=== PATIENT | female | born 1985 | race Caucasian/White ===

== ENCOUNTER 2021-01-07 11:02 | Day surgery (SDC) | payer BC ==
[2021-01-07] MEDS ORDERED: Sodium Chloride 0.9(Preservative Free) 10 ML IJ ONE (11:03)
[2021-01-07] MEDS ORDERED: Depo-Medrol 40 MG/ML IM ONE (11:03)
[2021-01-07] MEDS ORDERED: DIPRIVAN 200 MG/20 ML IV ONE ×2 (13:05→13:10)
--- NOTE | 2021-01-07 14:18 | XRAY ---
Indication: Left L4-S1 transforaminal ERIC. Intraoperative fluoroscopy provided for 23 seconds. 4 digital spot images submitted for interpretation demonstrate posterior needle tips projecting over the expected left L4 and L5 nerve roots. Small amount of contrast injected for needle tip placement. Correlate with intraoperative findings/report.
--- NOTE | 2021-01-07 14:18 | XRAY ---
23 seconds of fluoroscopy was used in surgery for a left L4-L5, L5-S1 transforaminal ERIC.
[2021-01-07] MEDS ORDERED: Lactated Ringers 1,000 ML IV ONE (15:41)
== END 2021-01-07 13:31 | disposition home or self-care (01) ==
LOC: SDC-PAIN 11:02
PROVIDERS: ATTEND Psychiatry & Neurology Pain Medicine
DX: M54.16 Radiculopathy, lumbar region (principal); D64.9 Anemia, unspecified; F41.9 Anxiety disorder, unspecified; F32.9 Major depressive disorder, single episode, unspecified; M41.9 Scoliosis, unspecified; Z79.899 Other long term (current) drug therapy
CPT/HCPCS: 64483; 64484; 72100; 77003; 84703; J1030; J2704; Q9966

== ENCOUNTER 2022-04-02 08:07 | Emergency (ER) | payer BC ==
[2022-04-02] MEDS ORDERED: Sodium Chloride 0.9% 1000 ML 1,000 ML IV STA (08:15)
[2022-04-02] MEDS ORDERED: MORPHINE SULFATE 4 MG INJ IV ONE (08:15)
[2022-04-02] MEDS ORDERED: Zofran 4 MG/2 ML VIAL IV ONE (08:15)
--- NOTE | 2022-04-02 08:19 | ERPHSYRPT ---
- History of Present Illness Time Seen by Provider: 04/02/22 08:15 Historian: patient Exam Limitations: no limitations Physician History: 37 years old female with history of MS presented in the ER with chief complaint of right lower quadrant pain since yesterday. Patient described this as a sharp throbbing moderate to severe intensity pain, more with activity, bending over and partial relief with being still and lying down. Denies associated nausea or vomiting. Denies any urinary symptoms. No fever or chills reported. Timing/Duration: yesterday, gradual onset, worse Activities at Onset: activity, rest Quality: sharpness, throbbing Abdominal Pain Onset Location: RLQ Pain Radiation: no radiation Severity of Pain-Max: moderate Severity of Pain-Current: moderate Modifying Factors: Improves With: lying down. Worsens With: movement, palpation Associated Symptoms: denies symptoms Previous symptoms: no prior history Allergies/Adverse Reactions: No Known Drug Allergies Allergy (Unverified 04/02/22 08:20) Home Medications: Glatiramer Acetate 40 mg SQ WEEKLY 04/02/22 [History] - Review of Systems Constitutional: No Symptoms Eyes: No Symptoms Ears, Nose, & Throat: No Symptoms Respiratory: No Symptoms Cardiac: No Symptoms Abdominal/Gastrointestinal: Abdominal Pain Genitourinary Symptoms: No Symptoms Musculoskeletal: No Symptoms Skin: No Symptoms Neurological: No Symptoms Psychological: No Symptoms Endocrine: No Symptoms Hematologic/Lymphatic: No Symptoms Immunological/Allergic: No Symptoms - Nursing Vital Signs Nursing Vital Signs: Initial Vital Signs Temperature 98.7 F 04/02/22 08:23 Pulse Rate 91 H 04/02/22 08:23 Respiratory Rate 20 04/02/22 08:23 Blood Pressure 151/103 04/02/22 08:23 O2 Sat by Pulse Oximetry 99 04/02/22 08:23 Pain Scale Pain Intensity 4 - Physical Exam General Appearance: no apparent distress, alert Eye Exam: PERRL/EOMI Ears, Nose, Throat Exam: normal ENT inspection Neck Exam: normal inspection, supple, carotid bruit Respiratory Exam: normal breath sounds, lungs clear Cardiovascular Exam: regular rate/rhythm, normal heart sounds Gastrointestinal/Abdomen Exam: soft, normal bowel sounds, tenderness, guarding (Right lower quadrant), rebound, other (Positive psoas sign. Negative obturator sign) Back Exam: normal inspection Extremity Exam: normal inspection, normal range of motion, pelvis stable Neurologic Exam: alert, oriented x 3, cooperative Skin Exam: normal color SpO2 Interpretation: normal SpO2: 96 O2 Delivery: Room Air Ordered Tests: Active Orders 24 hr Category Date Time Status IV Insertion STAT Care 04/02/22 08:15 Completed NPO (ED) STAT Care 04/02/22 08:15 Completed ABDOMEN AND PELVIS W/0 CONTRAS [CT] Stat Exams 04/02/22 09:20 Completed CBC W DIFF Stat Lab 04/02/22 08:15 Completed CMP Stat Lab 04/02/22 08:22 Completed HCG,QUALITATIVE URINE Stat Lab 04/02/22 08:21 Completed LIPASE Stat Lab 04/02/22 08:22 Completed UA W/RFX CULTURE Stat Lab 04/02/22 08:22 Completed Medication Summary Discontinued Medications Generic Name Dose Route Start Last Admin Trade Name Joseq PRN Reason Stop Dose Admin Sodium Chloride 1,000 mls @ 999 mls/hr 04/02/22 08:15 04/02/22 09:25 Sodium Chloride 0.9% 1000 Ml IV 04/02/22 09:15 Infused .Q1H1M STA Infusion Sodium Chloride Confirm 04/02/22 08:25 Sodium Chloride 0.9% 1000 Ml Administered 04/02/22 08:26 Dose 1,000 mls @ ud .ROUTE .STK-MED ONE Morphine Sulfate 4 mg 04/02/22 08:15 04/02/22 08:26 Morphine Sulfate 4 Mg/Ml Injection IV 04/02/22 08:16 4 mg STAT ONE Administration Morphine Sulfate Confirm 04/02/22 08:25 Morphine Sulfate 4 Mg/Ml Injection Administered 04/02/22 08:26 Dose 4 mg .ROUTE .STK-MED ONE Ondansetron HCl 4 mg 04/02/22 08:15 04/02/22 08:26 Ondansetron Hcl 4 Mg/2 Ml Vial IV 04/02/22 08:16 4 mg STAT ONE Administration Ondansetron HCl Confirm 04/02/22 08:24 Ondansetron Hcl 4 Mg/2 Ml Vial Administered 04/02/22 08:25 Dose 4 mg .ROUTE .STK-MED ONE Lab/Rad Data: Laboratory Result Diagrams 04/02/22 08:15 04/02/22 08:22 Laboratory Results 04/02/22 04/02/22 04/02/22 Range/Units 08:22 08:22 08:21 WBC (4.0-10.5) x10^3/uL RBC (4.1-5.4) x10^6/uL Hgb (12.0-16.0) g/dL Hct (35-47) % MCV (78-100) fL MCH (26-32) pg MCHC (32-36) g/dL RDW (11.5-14.0) % Plt Count (150-450) x10^3/uL MPV (7.5-11.0) fL Gran % (36.0-66.0) % Immature Gran % (Auto) (0.00-0.4) % Nucleat RBC Rel Count (0.00-0.1) % Eos # (Auto) (0-0.5) x10^3/uL Immature Gran # (Auto) (0.00-0.03) x10^3u/L Absolute Lymphs (auto) (1.0-4.6) x10^3/uL Absolute Monos (auto) (0.0-1.3) x10^3/uL Absolute Nucleated RBC (0.00-0.01) x10^3u/L Lymphocytes % (24.0-44.0) % Monocytes % (0.0-12.0) % Eosinophils % (0.00-5.0) % Basophils % (0.0-0.4) % Absolute Granulocytes (1.4-6.9) x10^3/uL Basophils # (0-0.4) x10^3/uL Sodium 142 (137-145) mmol/L Potassium 3.6 (3.5-5.1) mmol/L Chloride 104 (98-107) mmol/L Carbon Dioxide 26 (22-30) mmol/L Anion Gap 14.9 (5-15) MEQ/L BUN 11 (7-17) mg/dL Creatinine 0.63 (0.52-1.04) mg/dL Estimated GFR > 60.0 ML/MIN Glucose 83 (74-106) mg/dL Calcium 9.6 (8.4-10.2) mg/dL Total Bilirubin 0.50 (0.2-1.3) mg/dL AST 29 (14-36) U/L ALT 21 (0-35) U/L Alkaline Phosphatase 61 (38-126) U/L Serum Total Protein 8.1 (6.3-8.2) g/dL Albumin 4.9 (3.5-5.0) g/dL Lipase 69 (23-300) U/L Urinalys Dipstick Clnc MAIN LAB Urine Color YELLOW (YELLOW) Urine Appearance CLEAR (CLEAR) Urine pH 6.0 (5-6) Ur Specific [place] 1.020 (1.005-1.025) POC Urine Protein Conf NEGATIVE (Negative) Urine Ketones NEGATIVE (NEGATIVE) Urine Nitrite NEGATIVE (NEGATIVE) Urine Bilirubin NEGATIVE (NEGATIVE) Urine Urobilinogen 0.2 (0-1) mg/dL Urine Leukocytes NEGATIVE (NEGATIVE) Urine WBC (Auto) 0-2 (0-5) /HPF Urine RBC (Auto) 3-5 (0-2) /HPF U Epithel Cells (Auto) FEW (FEW) /HPF Urine Bacteria (Auto) FEW (NEGATIVE) /HPF Urine RBC MODERATE (0-5) Freddy/ul Ur Culture Indicated? NO Urine Glucose NEGATIVE (NEGATIVE) mg/dL Urine HCG, Qual NEGATIVE (Negative) 04/02/22 Range/Units 08:15 WBC 12.3 H (4.0-10.5) x10^3/uL RBC 4.15 (4.1-5.4) x10^6/uL Hgb 12.4 (12.0-16.0) g/dL Hct 37.7 (35-47) % MCV 90.8 (78-100) fL MCH 29.9 (26-32) pg MCHC 32.9 (32-36) g/dL RDW 13.1 (11.5-14.0) % Plt Count 324 (150-450) x10^3/uL MPV 9.5 (7.5-11.0) fL Gran % 78.5 H (36.0-66.0) % Immature Gran % (Auto) 0.2 (0.00-0.4) % Nucleat RBC Rel Count 0.0 (0.00-0.1) % Eos # (Auto) 0.15 (0-0.5) x10^3/uL Immature Gran # (Auto) 0.03 (0.00-0.03) x10^3u/L Absolute Lymphs (auto) 1.33 (1.0-4.6) x10^3/uL Absolute Monos (auto) 1.12 (0.0-1.3) x10^3/uL Absolute Nucleated RBC 0.00 (0.00-0.01) x10^3u/L Lymphocytes % 10.8 L (24.0-44.0) % Monocytes % 9.1 (0.0-12.0) % Eosinophils % 1.2 (0.00-5.0) % Basophils % 0.2 (0.0-0.4) % Absolute Granulocytes 9.67 H (1.4-6.9) x10^3/uL Basophils # 0.03 (0-0.4) x10^3/uL Sodium (137-145) mmol/L Potassium (3.5-5.1) mmol/L Chloride (98-107) mmol/L Carbon Dioxide (22-30) mmol/L Anion Gap (5-15) MEQ/L BUN (7-17) mg/dL Creatinine (0.52-1.04) mg/dL Estimated GFR ML/MIN Glucose (74-106) mg/dL Calcium (8.4-10.2) mg/dL Total Bilirubin (0.2-1.3) mg/dL AST (14-36) U/L ALT (0-35) U/L Alkaline Phosphatase (38-126) U/L Serum Total Protein (6.3-8.2) g/dL Albumin (3.5-5.0) g/dL Lipase (23-300) U/L Urinalys Dipstick Clnc Urine Color (YELLOW) Urine Appearance (CLEAR) Urine pH (5-6) Ur Specific [place] (1.005-1.025) POC Urine Protein Conf (Negative) Urine Ketones (NEGATIVE) Urine Nitrite (NEGATIVE) Urine Bilirubin (NEGATIVE) Urine Urobilinogen (0-1) mg/dL Urine Leukocytes (NEGATIVE) Urine WBC (Auto) (0-5) /HPF Urine RBC (Auto) (0-2) /HPF U Epithel Cells (Auto) (FEW) /HPF Urine Bacteria (Auto) (NEGATIVE) /HPF Urine RBC (0-5) Freddy/ul Ur Culture Indicated? Urine Glucose (NEGATIVE) mg/dL Urine HCG, Qual (Negative) - Progress Progress: improved Progress Note: 04/02/22 10:38 37-year-old is evaluated for right-sided abdominal pain. Given fluids and symptomatic treatment, on reevaluation feeling much better. Work-up showed white count of 12, unremarkable chemistries, no UTI. CT showed no acute appendicitis, some element of constipation and mild colitis, started on antibiotics. Discussed signs symptoms of worsening needing return to ER which he seems understanding. Stable for discharge with outpatient follow-up. Counseled pt/family regarding: lab results, diagnosis, need for follow-up, rad results - Departure Departure Disposition: Home Clinical Impression: Infectious colitis, Constipation Condition: Stable Critical Care Time: No Referrals: ZAIAD TOURE MD [Primary Care Provider] - Follow Up with PCP/3 days Instructions: Severe Abdominal Pain, Adult (DC) Additional Instructions: Plenty of fluids. Take Tylenol as needed. Follow-up with primary care for reevaluation. Return to ER for worsening abdominal pain or if develop fever chills, intractable nausea vomiting etc. Take daily MiraLAX/stool softeners. Prescriptions: Ibuprofen 600 mg PO Q6HPRN PRN 10 Days #20 tablet PRN Reason: Pain Ciprofloxacin [Cipro 500 MG] 500 mg PO BID #14 tablet Metronidazole 500 mg [Flagyl 500 MG] 500 mg PO TID #21 tablet
[2022-04-02] MEDS ORDERED: Zofran 4 MG/2 ML VIAL ONE (08:24)
[2022-04-02] MEDS ORDERED: MORPHINE SULFATE 4 MG INJ ONE (08:25)
[2022-04-02] MEDS ORDERED: Sodium Chloride 0.9% 1000 ML 1,000 ML ONE (08:25)
[2022-04-02 08:27] LABS: Absolute Neutrophil Ct (ANC) 9.67 x10^3/uL (1.4-6.9); Basophil (Absolute #) 0.03 x10^3/uL (0-0.4); Eosinophil % 1.2 % (0.00-5.0); Eosinophil (Absolute #) 0.15 x10^3/uL (0-0.5); Hematocrit 37.7 % (35-47); Hemoglobin 12.4 g/dL (12.0-16.0); Lymphocyte (Absolute #) 1.33 x10^3/uL (1.0-4.6); Lymphocytes % 10.8 % (24.0-44.0); Mean Cell Volume 90.8 fL (78-100); Mean Corpuscular Hemoglobin 29.9 pg (26-32); Mean Corpuscular Hgb Concent. 32.9 g/dL (32-36); Mean Platelet Volume 9.5 fL (7.5-11.0); Monocyte (Absolute #) 1.12 x10^3/uL (0.0-1.3); Monocytes % 9.1 % (0.0-12.0); Neutrophil % 78.5 % (36.0-66.0); Platelet Count 324 x10^3/uL (150-450); Red Blood Count 4.15 x10^6/uL (4.1-5.4); Red Cell Distribution Width 13.1 % (11.5-14.0); White Blood Count 12.3 x10^3/uL (4.0-10.5)
[2022-04-02 08:28] VITALS: BP 151/103; PULSE 91
[2022-04-02 08:37] LABS: Appearance CLEAR (CLEAR); Bilirubin NEGATIVE (NEGATIVE); Dipstick done @ ? MAIN LAB; Glucose NEGATIVE (NEGATIVE); Ketones NEGATIVE (NEGATIVE); Nitrite NEGATIVE (NEGATIVE); Protein,Urine Dip NEGATIVE (Negative); RBC MODERATE Ery/ul (0-5); Urobilinogen 0.2 mg/dL (0-1)
[2022-04-02 08:44] LABS: ALBUMIN 4.9 g/dL (3.5-5.0); ALKALINE PHOSPHATASE 61 U/L (38-126); ANION GAP 14.9 MEQ/L (5-15); BLOOD UREA NITROGEN 11 mg/dL (7-17); CHLORIDE 104 mmol/L (98-107); Calcium 9.6 mg/dL (8.4-10.2); Carbon Dioxide 26 mmol/L (22-30); Creatinine 1 0.63 mg/dL (0.52-1.04); EST GLOMERULAR FILTRATION RATE > 60.0 ML/MIN; Glucose 83 mg/dL (74-106); LIPASE 69 U/L (23-300); Potassium 3.6 mmol/L (3.5-5.1); SGOT/AST 29 U/L (14-36); SGPT/ALT 21 U/L (0-35); SODIUM 142 mmol/L (137-145); Total Protein 8.1 g/dL (6.3-8.2)
[2022-04-02 08:47] LABS: Bacteria FEW /HPF (NEGATIVE); Epithelial Cells FEW /HPF (FEW); Urine Cultured Indicated? NO; WBC 0-2 /HPF (0-5)
--- NOTE | 2022-04-02 09:38 | XRAY ---
Indication: Right lower quadrant pain. Elevated WBC. Multiple contiguous axial images obtained through the abdomen and pelvis without contrast. Comparison: None Lung bases clear. Heart not enlarged. Incidental partially visualized bilateral breast implants. Noncontrasted stomach and bowel loops appear nonobstructed with normal appendix. Mild diffuse scattered colonic fecal debris throughout. Proximal transverse colon demonstrates mild pericolonic stranding favoring colitis. No free fluid/air. Uterus demonstrates IUD in situ. Remaining liver, gallbladder, pancreas, spleen, adrenal glands, kidneys, ureters, bladder, uterus, and aorta are unremarkable for noncontrast exam. Osseous structures intact with mild dextroscoliosis centered at L1. Lower abdomen demonstrates bilateral subcutaneous induration presumed iatrogenic. No ventral inguinal hernias. Impression: 1. Mild colitis proximal transverse colon. No complications. 2. Incidental diffuse fecal stasis and IUD in situ.
[2022-04-02 10:41] VITALS: O2SAT 96
== END 2022-04-02 10:47 | disposition home or self-care (01) ==
LOC: ED 08:07
DX: A09 Infectious gastroenteritis and colitis, unspecified (principal); K59.00 Constipation, unspecified; R10.31 Right lower quadrant pain; G35 Multiple sclerosis; Z79.899 Other long term (current) drug therapy
CPT/HCPCS: 36000; 36415; 74176; 80053; 81015; 81025; 83690; 85025; 96360; 96374; 96375; 99284; J2270; J2405

== ENCOUNTER 2022-06-09 06:29 | Day surgery (SDC) | payer BC ==
[2022-06-09] MEDS ORDERED: Lactated Ringers 1,000 ML IV SCH (07:00)
[2022-06-09] MEDS ORDERED: Versed 2 MG/2 ML Injection ONE (08:01)
[2022-06-09] MEDS ORDERED: Xylocaine-Mpf 2% 5 Ml Vial ONE (08:02)
[2022-06-09] MEDS ORDERED: DIPRIVAN 200 MG/20 ML IV ONE ×3 (08:02→08:31)
[2022-06-09 09:29] VITALS: BP 117/85; PULSE 69; O2SAT 97
--- NOTE | 2022-06-14 08:34 | OP ---
SURGERY DATE/TIME: 06/09/2022 0800 PREOPERATIVE DIAGNOSIS: Change in bowel habits. POSTOPERATIVE DIAGNOSIS: Normal colon. PROCEDURE: Diagnostic colonoscopy. SURGEON: Ulysses Back M.D. ANESTHESIA: MAC by Jose Luis Shetty CRNA. ESTIMATED BLOOD LOSS: None. SPECIMENS: None. DESCRIPTION OF PROCEDURE: After informed written consent was obtained, the patient was taken to the endoscopy suite. She was placed in left lateral decubitus position and anesthesia was titrated to desired level of consciousness. Digital rectal exam showed normal sphincter tone and no internal lesions. The scope was inserted into the rectum and sequentially the entire colonic mucosa was traversed. The level of cecum was reached and verified with direct visualization of the ileocecal valve. Upon withdrawal careful mucosal inspection revealed no gross abnormalities. Prep was noted to be good. Prior to withdrawal retroflexion was performed and showed no internal lesions. The scope was removed. The patient was transferred to the recovery room in good condition.
== END 2022-06-09 09:35 | disposition home or self-care (01) ==
LOC: SDC 06:29
PROVIDERS: ATTEND Family Medicine
DX: R19.4 Change in bowel habit (principal)
CPT/HCPCS: 81025; J2250; J2704

== ENCOUNTER 2023-07-14 06:54 | Day surgery (SDC) | payer OTHER ==
[2023-07-14] MEDS ORDERED: LIDOCAINE HCL 2% 100 MG/5 ML IJ ONE (06:55)
[2023-07-14 07:24] LABS: HCG URINE TEST NEGATIVE (NEGATIVE)
[2023-07-14] MEDS ORDERED: DIPRIVAN 200 MG/20 ML IV ONE (08:32)
--- NOTE | 2023-07-14 09:27 | XRAY ---
Indication: Bilateral L4-S1 MBB. Intraoperative fluoroscopy provided for 13 seconds. Single digital spot image submitted for interpretation demonstrates posterior needle tips projecting over the expected left and right L4-S1 nerve roots. Correlate with intraoperative findings/report.
--- NOTE | 2023-07-14 10:25 | XRAY ---
13 seconds of fluoroscopy was used in surgery for a bilateral L4-S1 MBB.
[2023-07-14] MEDS ORDERED: Lactated Ringers 1,000 ML IV ONE (15:55)
== END 2023-07-14 08:57 | disposition home or self-care (01) ==
LOC: SDC-PAIN 06:54
PROVIDERS: ATTEND Psychiatry & Neurology Pain Medicine
DX: M47.816 Spondylosis without myelopathy or radiculopathy, lumbar region (principal)
CPT/HCPCS: 64493; 64494; 72020; 77002; 81025; J2704

== ENCOUNTER 2023-08-24 11:54 | Day surgery (SDC) | payer OTHER ==
[2023-08-24] MEDS ORDERED: BUPIVACAINE 0.5% VIAL IJ ONE (11:55)
[2023-08-24 12:47] LABS: HCG URINE TEST NEGATIVE (NEGATIVE)
[2023-08-24] MEDS ORDERED: DIPRIVAN 200 MG/20 ML IV ONE (14:33)
[2023-08-24] MEDS ORDERED: Lactated Ringers 1,000 ML IV ONE (14:51)
--- NOTE | 2023-08-24 14:59 | XRAY ---
Indication: Bilateral L4-S1 MBB. Intraoperative fluoroscopy provided for 16 seconds. Single digital spot image submitted for interpretation demonstrates posterior needle tips projecting over the expect left and right L4-S1 nerve roots. Correlate with intraoperative findings/report.
--- NOTE | 2023-08-24 15:07 | XRAY ---
16 seconds of fluoroscopy was used in surgery for a bilateral L4-S1 MBB.
== END 2023-08-24 15:06 | disposition home or self-care (01) ==
LOC: SDC-PAIN 11:54
PROVIDERS: ATTEND Psychiatry & Neurology Pain Medicine
DX: M47.816 Spondylosis without myelopathy or radiculopathy, lumbar region (principal)
CPT/HCPCS: 64493; 64494; 72020; 77002; 81025; J2704

== ENCOUNTER 2023-09-28 14:10 | Day surgery (SDC) | payer OTHER ==
[2023-09-28] MEDS ORDERED: BUPIVACAINE 0.5% VIAL IJ ONE (14:11)
[2023-09-28] MEDS ORDERED: XYLOCAINE-MPF 1% 5ML SDV IJ ONE (14:11)
[2023-09-28] MEDS ORDERED: Depo-Medrol 40 MG/ML IM ONE (14:11)
[2023-09-28 14:33] LABS: HCG URINE TEST NEGATIVE (NEGATIVE)
[2023-09-28] MEDS ORDERED: Lactated Ringers 1,000 ML IV ONE (15:32)
[2023-09-28] MEDS ORDERED: Versed 2 MG/2 ML Injection ONE (15:41)
[2023-09-28] MEDS ORDERED: DIPRIVAN 200 MG/20 ML IV ONE ×2 (15:41→15:50)
--- NOTE | 2023-09-28 16:45 | XRAY ---
Indication: Left L4-S1 RFA. Intraoperative fluoroscopy provided for 28 seconds. 4 digital spot image submitted for interpretation demonstrates posterior needle tips projecting over the expected left L4-S1 nerve roots. Correlate with intraoperative findings/report.
--- NOTE | 2023-09-28 16:47 | XRAY ---
28 seconds of fluoroscopy was used in surgery for a left L4-S1 RFA.
== END 2023-09-28 16:18 | disposition home or self-care (01) ==
LOC: SDC-PAIN 14:10
PROVIDERS: ATTEND Psychiatry & Neurology Pain Medicine
DX: M47.816 Spondylosis without myelopathy or radiculopathy, lumbar region (principal)
CPT/HCPCS: 64635; 64636; 72100; 77002; 81025; J1030; J2250; J2704

== ENCOUNTER 2023-10-05 10:58 | Day surgery (SDC) | payer OTHER ==
[2023-10-05] MEDS ORDERED: Depo-Medrol 40 MG/ML IM ONE (10:59)
[2023-10-05] MEDS ORDERED: BUPIVACAINE 0.5% VIAL IJ ONE (10:59)
[2023-10-05] MEDS ORDERED: LIDOCAINE HCL 1% 50 MG/5 ML VL PF IJ ONE (10:59)
[2023-10-05 11:30] LABS: HCG URINE TEST NEGATIVE (NEGATIVE)
[2023-10-05] MEDS ORDERED: DIPRIVAN 200 MG/20 ML IV ONE ×2 (12:41→12:51)
[2023-10-05] MEDS ORDERED: Lactated Ringers 1,000 ML IV ONE (14:01)
--- NOTE | 2023-10-05 15:00 | XRAY ---
Indication: Right L4-S1 RFA. Intraoperative fluoroscopy provided for 20 seconds. 5 digital spot images submitted for interpretation demonstrates posterior needle tips projecting over the expected right L4-S1 nerve roots. Correlate with intraoperative findings/report.
--- NOTE | 2023-10-05 15:08 | XRAY ---
20 seconds of fluoroscopy was used in surgery for a right L4-S1 RFA.
== END 2023-10-05 13:13 | disposition home or self-care (01) ==
LOC: SDC-PAIN 10:58
PROVIDERS: ATTEND Psychiatry & Neurology Pain Medicine
DX: M47.816 Spondylosis without myelopathy or radiculopathy, lumbar region (principal)
CPT/HCPCS: 64635; 64636; 72100; 77002; 81025; J1030; J2001; J2704